=== PATIENT | female | born 1965 | race African-American/Black ===

== ENCOUNTER 2018-09-28 12:21 | Emergency (ER) | payer MEDICAID ==
[~2018-09-28] VITALS: Ht 167.6 cm; Wt 81.8 kg
[~2018-09-28 12:21] MED LIST: FERR256T PO; HYDR-4001 PO; HYDR25TA PO; OMEP20TA2 PO
[2018-09-28] MEDS ORDERED: HYDROCODONE/ACETAMINOPHEN 5/325MG TABLET PO ONE (14:45)
[2018-09-28 16:57] VITALS: BP 142/88
== END 2018-09-28 16:57 | disposition home or self-care (01) ==
LOC: ER 12:21
DX: M54.5 Low back pain (principal); F32.9 Major depressive disorder, single episode, unspecified; I10 Essential (primary) hypertension; J45.909 Unspecified asthma, uncomplicated; F20.9 Schizophrenia, unspecified; F12.10 Cannabis abuse, uncomplicated; F17.210 Nicotine dependence, cigarettes, uncomplicated; Z88.8 Allergy status to other drugs, medicaments and biological substances; Z98.890 Other specified postprocedural states; W18.39XA Other fall on same level, initial encounter; Y93.89 Activity, other specified; Y92.89 Other specified places as the place of occurrence of the external cause; Y99.8 Other external cause status
CPT/HCPCS: 72100; 72148; 99284

== ENCOUNTER 2019-08-08 06:28 | Inpatient (IN) | payer MEDICAID ==
[2019-08-08] VITALS (58 sets, daily range): BP systolic 90–152; BP diastolic 20–126
[~2019-08-08] VITALS: Ht 167.6 cm; Wt 88.9 kg
[2019-08-08 07:40] LABS: BASOPHILS % 0.9 % (0.0-2.0); EOSINOPHILS % 4.8 % (0.0-5.0); HEMOGLOBIN. 13.7 g/dL (12.0-16.0); LYMPHOCYTES % 28.7 % (20.0-50.0); MEAN CORPUSCULAR HEMOGLOBIN 28.7 pg (28.0-32.0); MEAN PLATELET VOLUME 7.2 fl (7.4-10.4); MONOCYTES % 6.9 % (2.0-8.0); NEUTROPHILS % 58.7 % (40.0-76.0); PLATELET 298 x1000/uL (130-400); RED BLOOD CELL COUNT 4.76 mill/uL (4.2-5.4); RED CELL DISTRIBUTION WIDTH 14.9 % (11.6-14.6)
[2019-08-08 07:43] LABS: CLARITY URINE CLEAR (CLEAR); COLOR URINE YELLOW (YELLOW); KETONES URINE NEGATIVE (NEGATIVE); LEUKOCYTE ESTERASE URINE NEGATIVE (NEGATIVE); NITRITE URINE NEGATIVE (NEGATIVE); OCCULT BLOOD URINE NEGATIVE (NEGATIVE); PROTEIN URINE NEGATIVE (NEGATIVE); SPECIFIC GRAVITY URINE 1.012 (1.005-1.030); UROBILINOGEN URINE 0.2 E.U./dL (0.2-1.0)
[2019-08-08] MEDS ORDERED: ATOR10TA69 PO (07:43)
[2019-08-08 07:47] LABS: INR 0.9; PARTIAL THROMBOPLASTIN TIME 26.1 sec (23.4-31.0)
[2019-08-08 07:59] LABS: UCG SCREEN NEGATIVE
[2019-08-08] MEDS ORDERED: LACTATED RINGERS 1,000 ML IV SCH (08:00)
[2019-08-08] MEDS ORDERED: THROMBIN (BOVINE) 5000 UNITS/VIAL TOP ONE (08:06)
[2019-08-08] MEDS ORDERED: LIDOCAINE HCL/EPINEPHRINE 1%-EPI 1:100,000 20 ML VIAL ONE (08:07)
[2019-08-08] MEDS ORDERED: BACITRACIN 50,000 UNITS/VIAL ONE (08:07)
[2019-08-08 08:09] LABS: CHLORIDE 109 mEq/L (98-107)
[2019-08-08] MEDS ORDERED: ALBU6.7H9 IH (08:39)
[2019-08-08] MEDS ORDERED: GABA800T97 PO (08:39)
[2019-08-08] MEDS ORDERED: FLUT1AER IH (08:39)
[2019-08-08] MEDS ORDERED: ONDANSETRON HCL 4MG/2ML INJ IV PRN (08:45)
[2019-08-08] MEDS ORDERED: NICARDIPINE 100 MG in SODIUM CHLORIDE 0.9% 60 ML IV PRN (08:45)
[2019-08-08 09:14] LABS: OPIATES URINE SCREEN NEGATIVE (NEGATIVE); PHENCYCLIDINE URINE SCREEN NEGATIVE (NEGATIVE)
[2019-08-08] MEDS ORDERED: NEOSTIGMINE METHYLSULFATE 1MG/ML 10 ML VIAL ONE (09:14)
[2019-08-08] MEDS ORDERED: FENTANYL CITRATE/PF 50MCG/ML 2ML VIAL ONE (09:14)
[2019-08-08] MEDS ORDERED: ROCURONIUM BROMIDE 10MG/ML VIAL 5ML IV ONE ×2 (09:14→09:48)
[2019-08-08 09:15] LABS: *AMPHETAMINES SCREEN URINE NEGATIVE (NEGATIVE); *BARBITURATES SCREEN URINE NEGATIVE (NEGATIVE); *BENZODIAZEPINES SCREEN URINE NEGATIVE (NEGATIVE); *COCAINE SCREEN URINE PRESUMTIVE POSITIVE (NEGATIVE); CANNABINOID URINE SCREEN NEGATIVE (NEGATIVE); METHADONE URINE SCREEN NEGATIVE (NEGATIVE)
[2019-08-08] MEDS ORDERED: EPHEDRINE SULFATE 50MG/ML VIAL ONE (09:15)
[2019-08-08] MEDS ORDERED: SUCCINYLCHOLINE CHLORIDE 200MG/10ML IV ONE (09:15)
[2019-08-08] MEDS ORDERED: METOCLOPRAMIDE HCL 10MG/2ML VIAL ONE (09:15)
[2019-08-08] MEDS ORDERED: PROPOFOL 200MG/20ML VIAL IV ONE ×2 (09:15→10:09)
[2019-08-08] MEDS ORDERED: PHENYLEPHRINE HCL 10 MG/ML 1ML (IV VIAL) IV ONE (09:15)
[2019-08-08] MEDS ORDERED: SODIUM CHLORIDE 0.9% 10ML VIAL ONE (09:15)
[2019-08-08] MEDS ORDERED: GLYCOPYRROLATE 0.2 MG/ML 2ML VIAL ONE (09:15)
[2019-08-08] MEDS ORDERED: CEFAZOLIN SODIUM 1000MG/VIAL ONE (09:15)
[2019-08-08] MEDS ORDERED: MIDAZOLAM HCL 2 MG/2 ML VIAL ONE (09:15)
[2019-08-08] MEDS ORDERED: FENTANYL CITRATE/PF 50MCG/ML 5ML VIAL ONE (09:29)
[2019-08-08] MEDS ORDERED: ALBUTEROL 90MCG/PUFF 17GM INHALER INH ONE (09:33)
[2019-08-08] MEDS ORDERED: HYDRALAZINE 20MG/ML VIAL ONE (10:41)
[2019-08-08] MEDS ORDERED: LABETALOL HCL 5MG/ML VIAL 20ML IV ONE (10:57)
[2019-08-08] MEDS: DEXT 5%/LACTATED RINGERS 1,000 ML IV SCH ×3 (11:00→21:40)
[2019-08-08] MEDS ORDERED: HYDROMORPHONE PCA 10MG/50ML IV PRN (11:15)
[2019-08-08] MEDS ORDERED: DIPHENHYDRAMINE INJ IV PRN (11:15)
[2019-08-08] MEDS ORDERED: ONDANSETRON INJ IV PRN (11:15)
[2019-08-08] MEDS ORDERED: NALOXONE INJ IV PRN (11:15)
[2019-08-08] MEDS: MORPHINE SULFATE 4 MG/ML CPJ (NOT FOR IM USE) IV PRN (13:06)
[2019-08-08] MEDS ORDERED: POTASSIUM CHLORIDE 20MEQ TABLET SR PO NR (13:15)
[2019-08-08] MEDS: DEXAMETHASONE 4MG/ML 1ML VIAL IV SCH ×3 (13:24→23:51)
[2019-08-08] MEDS ORDERED: CEFAZOLIN SODIUM 1000MG/VIAL IV SCH (14:00)
[2019-08-08] MEDS: OMEPRAZOLE 20MG CAPSULE EXTENDED RELEASE PO SCH (15:00)
[2019-08-08] MEDS: CEFAZOLIN 1000MG PREMIX 50 ML IV SCH (17:34)
[2019-08-09] VITALS (21 sets, daily range): BP systolic 57–159; BP diastolic 31–90
[2019-08-09] MEDS: CEFAZOLIN 1000MG PREMIX 50 ML IV SCH ×2 (01:58→09:46)
[2019-08-09] MEDS: DEXAMETHASONE 4MG/ML 1ML VIAL IV SCH ×2 (06:12→13:16)
[2019-08-09] MEDS: OMEPRAZOLE 20MG CAPSULE EXTENDED RELEASE PO SCH (06:58)
[2019-08-09 07:25] LABS: HEMATOCRIT. 35.5 % (36.0-48.0); HEMOGLOBIN. 12.2 g/dL (12.0-16.0); MEAN CORPUSCULAR HEMOGLOBIN 28.8 pg (28.0-32.0); MEAN CORPUSCULAR VOLUME 83.9 fL (81.0-99.0); MEAN PLATELET VOLUME 7.5 fl (7.4-10.4); PLATELET 282 x1000/uL (130-400); RED BLOOD CELL COUNT 4.23 mill/uL (4.2-5.4)
[2019-08-09 07:39] LABS: CHLORIDE 107 mEq/L (98-107)
[2019-08-09] MEDS ORDERED: HYDRALAZINE 20MG/ML VIAL IV PRN (07:45)
[2019-08-09 07:48] LABS: HDL CHOLESTEROL 51 mg/dL (40-59)
[2019-08-09 07:49] LABS: LDL CHOLESTEROL 117 mg/dL (5-100)
[2019-08-09 08:06] LABS: VITAMIN B12 SERUM 641 pg/mL (211-911)
[2019-08-09] MEDS: DEXT 5%/LACTATED RINGERS 1,000 ML IV SCH (09:45)
[2019-08-09] MEDS: ATORVASTATIN CALCIUM 10MG TABLET PO SCH (09:46)
[2019-08-09] MEDS: HYDROCHLOROTHIAZIDE 25MG TABLET PO SCH (13:17)
[2019-08-09 14:18] LABS: PLATELET ESTIMATE NORMAL
[2019-08-09] MEDS: HYDROCODONE/ACETAMINOPHEN 5/325MG TABLET PO PRN (20:01)
[2019-08-09] MEDS: GUAIFENESIN 600MG ER TABLET PO SCH (21:46)
[2019-08-10] VITALS: BP 135/74
[2019-08-10] MEDS: DEXT 5%/LACTATED RINGERS 1,000 ML IV SCH (00:39)
[2019-08-10] MEDS: HYDROCODONE/ACETAMINOPHEN 5/325MG TABLET PO PRN ×2 (00:40→10:04)
[2019-08-10 04:00] VITALS: BP 150/78
[2019-08-10] MEDS: MORPHINE SULFATE 4 MG/ML CPJ (NOT FOR IM USE) IV PRN (04:13)
[2019-08-10 05:00] VITALS: BP 126/70
[2019-08-10] MEDS: OMEPRAZOLE 20MG CAPSULE EXTENDED RELEASE PO SCH (06:39)
[2019-08-10 07:23] LABS: BASOPHILS % 0.1 % (0.0-2.0); HEMOGLOBIN. 11.6 g/dL (12.0-16.0); LYMPHOCYTES % 12.7 % (20.0-50.0); MEAN CORPUSCULAR HEMOGLOBIN 28.6 pg (28.0-32.0); MEAN CORPUSCULAR VOLUME 83.5 fL (81.0-99.0); MEAN PLATELET VOLUME 7.3 fl (7.4-10.4); MONOCYTES % 7.2 % (2.0-8.0); PLATELET 251 x1000/uL (130-400); RED BLOOD CELL COUNT 4.07 mill/uL (4.2-5.4); RED CELL DISTRIBUTION WIDTH 14.9 % (11.6-14.6)
[2019-08-10 07:32] LABS: CHLORIDE 107 mEq/L (98-107)
[2019-08-10 08:00] VITALS: BP 140/67
[2019-08-10] MEDS: ATORVASTATIN CALCIUM 10MG TABLET PO SCH (08:34)
[2019-08-10] MEDS: HYDROCHLOROTHIAZIDE 25MG TABLET PO SCH (08:34)
[2019-08-10] MEDS: GUAIFENESIN 600MG ER TABLET PO SCH (08:40)
[2019-08-10 12:00] VITALS: BP 138/76
[2019-08-10] MEDS ORDERED: IPRATROPIUM/ALBUTEROL 0.5-3(2.5)MG/3ML NEB HHN PRN (13:30)
[2019-08-10 15:24] VITALS: BP 138/76
[2019-08-10] MEDS ORDERED: HYDRALAZINE 5 MG in SODIUM CHLORIDE 0.9% 49.75 ML IV PRN (17:45)
[2019-08-10] MEDS ORDERED: AMLODIPINE 5MG TABLET PO SCH (21:00)
== END 2019-08-10 15:46 | disposition home or self-care (01) | DRG 321 ==
LOC: OR 06:28 → 5EST 06:29 → 6EST 08-09 11:16
PROVIDERS: ADMIT Neurological Surgery; ATTEND Neurological Surgery
PROC: 0RG20J0 Fusion of 2 or more Cervical Vertebral Joints with Synthetic Substitute, Anterior Approach, Anterior Column, Open Approach (ICD-10-PCS; principal; 2019-08-08)
DX: M48.02 Spinal stenosis, cervical region (principal); G82.50 Quadriplegia, unspecified; M47.12 Other spondylosis with myelopathy, cervical region; F20.9 Schizophrenia, unspecified; G95.20 Unspecified cord compression; I10 Essential (primary) hypertension; E78.5 Hyperlipidemia, unspecified; I44.0 Atrioventricular block, first degree; K21.9 Gastro-esophageal reflux disease without esophagitis; F14.10 Cocaine abuse, uncomplicated; J45.909 Unspecified asthma, uncomplicated; M25.78 Osteophyte, vertebrae; M54.12 Radiculopathy, cervical region; R29.6 Repeated falls; R26.89 Other abnormalities of gait and mobility; Z60.2 Problems related to living alone; Z98.1 Arthrodesis status
CPT/HCPCS: 36415; 71045; 72040; 72141; 76000; 80048; 80053; 80061; 80305; 81003; 81025; 82607; 83735; 84443; 85025; 86850; 86900; 88304; 88311; 93005; 93306; 95925; 95926; 95928; 95929; 97116; 97162; 97166; 97530; C1713; J0330; J0360; J0690; J1100; J1170; J2250; J2270; J2370; J2405; J2704; J2710; J2765; J3010; J3490; J7050; J7121; L0172

== ENCOUNTER 2019-08-16 10:35 | Emergency (ER) | payer MEDICAID ==
[~2019-08-16] VITALS: Ht 165.1 cm; Wt 77.0 kg
[~2019-08-16 10:35] MED LIST changes: +ALBU6.7H9 IH; +ATOR10TA69 PO; +FLUT1AER IH; +GABA800T97 PO
[2019-08-16] MEDS ORDERED: IPRATROPIUM BROMIDE (0.02%) 0.5MG/2.5ML NEB HHN STA (11:27)
[2019-08-16] MEDS ORDERED: ALBUTEROL (0.083%) 2.5MG/3ML NEB HHN STA (11:27)
[2019-08-16] MEDS ORDERED: MAGNESIUM 2 G PREMIX 50 ML IV STA (11:27)
[2019-08-16] MEDS ORDERED: METHYLPREDNISOLONE SOD SUCC 125 MG/2 ML VIAL IV STA (11:27)
[2019-08-16 13:00] VITALS: BP 151/94
[2019-08-16 13:01] LABS: BASOPHILS % 0.5 % (0.0-2.0); EOSINOPHILS % 2.3 % (0.0-5.0); HEMATOCRIT. 36.9 % (36.0-48.0); HEMOGLOBIN. 12.7 g/dL (12.0-16.0); MEAN CORPUSCULAR HEMOGLOBIN 28.9 pg (28.0-32.0); MEAN PLATELET VOLUME 7.2 fl (7.4-10.4); MONOCYTES % 8.5 % (2.0-8.0); NEUTROPHILS % 65.7 % (40.0-76.0); PLATELET 344 x1000/uL (130-400); RED BLOOD CELL COUNT 4.39 mill/uL (4.2-5.4); RED CELL DISTRIBUTION WIDTH 15.1 % (11.6-14.6)
[2019-08-16 13:09] LABS: CHLORIDE 103 mEq/L (98-107)
[2019-08-16 13:11] LABS: INR 0.9
[2019-08-16] MEDS ORDERED: LEVOFLOXACIN 500MG PREMIX 100 ML IV ONE (13:30)
== END 2019-08-16 13:58 | disposition left against medical advice (07) ==
LOC: ER 10:35 → EDBEDREQ 14:10 → EDBEDREQSVC 14:10 → EDBEDREQTM 14:10 → CANBEDREQ 14:25
DX: J44.1 Chronic obstructive pulmonary disease with (acute) exacerbation (principal); J45.901 Unspecified asthma with (acute) exacerbation; I10 Essential (primary) hypertension; F12.10 Cannabis abuse, uncomplicated; T46.4X5A Adverse effect of angiotensin-converting-enzyme inhibitors, initial encounter; Z88.8 Allergy status to other drugs, medicaments and biological substances; Z79.899 Other long term (current) drug therapy
CPT/HCPCS: 36415; 71045; 80053; 83605; 83690; 83880; 84145; 84484; 85025; 85610; 87040; 94640; 99291; J1956; J2930; J3475; Z7610; 94644; 99285

== ENCOUNTER → 2020-02-10 | Outpatient (CLI) | payer MEDICAID | END | disposition home or self-care (01) | LOC: LAB 11:50 | PROVIDERS: ATTEND Neurological Surgery | DX: Z01.812 Encounter for preprocedural laboratory examination (principal); Z20.828 Contact with and (suspected) exposure to other viral communicable diseases | CPT/HCPCS: C9803; U0003 ==